=== PATIENT | male | born 1975 | race Caucasian/White ===

== ENCOUNTER 2016-04-14 08:55 | Outpatient (RCR) | payer OTHER ==
[2015-11-01 00:52] VITALS: BP 140/91
== END 2016-05-16 09:03 | disposition home or self-care (01) ==
LOC: PT 08:55
DX: M54.2 Cervicalgia (principal)

== ENCOUNTER → 2016-04-14 | Outpatient (CLI) | payer OTHER ==
[~2016-04-14] MED LIST: BACTRIM DS TAB1 EACH PO; CELEXA 20MG20 MG/TA1 PO; LEADER OMEPRAZO20 MG PO
== END ==
LOC: RAD 07:50
DX: R19.00 Intra-abdominal and pelvic swelling, mass and lump, unspecified site (principal); K43.9 Ventral hernia without obstruction or gangrene

== ENCOUNTER 2016-07-22 17:39 | Emergency (ER) | payer OTHER ==
[2016-07-22 21:04] VITALS: BP 143/90
== END 2016-07-22 21:04 | disposition home or self-care (01) ==
LOC: ED 17:39
DX: A08.4 Viral intestinal infection, unspecified (principal)
CPT/HCPCS: J1885; J2405; J7030; Q9967

== ENCOUNTER 2018-09-14 00:36 | Emergency (ER) | payer OTHER ==
[2018-09-14] MEDS ORDERED: AUGMENTIN 875-1 EAC1 PO (01:30)
[2018-09-14] MEDS ORDERED: NORCO 325 MG-51 TA1 PO (01:40)
[2018-09-14 01:42] VITALS: BP 156/90
== END 2018-09-14 01:42 | disposition home or self-care (01) ==
LOC: ED 00:36
DX: S51.852A Open bite of left forearm, initial encounter (principal); K21.9 Gastro-esophageal reflux disease without esophagitis; F17.290 Nicotine dependence, other tobacco product, uncomplicated; Z23 Encounter for immunization; Z90.49 Acquired absence of other specified parts of digestive tract; W54.0XXA Bitten by dog, initial encounter; Y92.009 Unspecified place in unspecified non-institutional (private) residence as the place of occurrence of the external cause
CPT/HCPCS: 90715

== ENCOUNTER → 2019-10-28 | Outpatient (CLI) | payer OTHER ==
[~2019-10-28] MED LIST changes: +AUGMENTIN 875-1 EAC1 PO; +NORCO 325 MG-51 TA1 PO
== END ==
LOC: RAD 07:55
DX: Z00.00 Encounter for general adult medical examination without abnormal findings (principal); Z12.5 Encounter for screening for malignant neoplasm of prostate; K21.9 Gastro-esophageal reflux disease without esophagitis; M54.2 Cervicalgia; Z72.0 Tobacco use; R06.00 Dyspnea, unspecified; R06.2 Wheezing

== ENCOUNTER → 2019-12-26 | Outpatient (CLI) | payer OTHER | LOC: LAB 13:52 | DX: J02.9 Acute pharyngitis, unspecified (principal); R09.81 Nasal congestion; Z20.828 Contact with and (suspected) exposure to other viral communicable diseases ==

== ENCOUNTER → 2021-02-22 | Outpatient (CLI) | payer OTHER | LOC: LAB 10:53 | DX: U07.1 COVID-19 (principal); R03.0 Elevated blood-pressure reading, without diagnosis of hypertension ==

== ENCOUNTER → 2021-08-15 | Outpatient (CLI) | payer OTHER | LOC: LAB 11:50 | DX: M54.6 Pain in thoracic spine (principal) ==

== ENCOUNTER → 2021-09-19 | Outpatient (REF) ==
[2021-09-20 16:48] LABS: T3 TOTAL 95 ng/dL (35-193)
== END ==
LOC: LAB 16:02
PROVIDERS: Physician Assistant
DX: Z13.29 Encounter for screening for other suspected endocrine disorder (principal); K90.9 Intestinal malabsorption, unspecified

== ENCOUNTER → 2022-04-09 | Outpatient (CLI) | payer BC | LOC: RAD 08:53 | DX: M67.442 Ganglion, left hand (principal) ==

== ENCOUNTER → 2022-05-01 | Outpatient (CLI) | payer BC | LOC: RAD 17:16 | DX: R05.9 Cough, unspecified (principal) ==

== ENCOUNTER → 2023-04-27 | Day surgery (SDC) | payer BC | END | disposition home or self-care (01) | LOC: MSO 02-02 12:06 | DX: Z12.11 Encounter for screening for malignant neoplasm of colon (principal); F17.210 Nicotine dependence, cigarettes, uncomplicated | CPT/HCPCS: 00812; J2704; J7120 ==

== ENCOUNTER → 2023-12-23 | Outpatient (CLI) | payer BC ==
[2023-12-23 16:48] LABS: BASO # 0.03 K/mm3 (0.02-0.10); EOS # 0.35 K/mm3 (0.04-0.40); EOS % 5.1 % (0.0-4.0); HEMATOCRIT 38.6 % (42.0-52.0); HEMOGLOBIN 12.4 g/dL (13.5-18.0); LYMPH# 2.07 K/mm3 (1.50-4.00); MEAN CELL VOLUME 82 fl (78-100); MEAN CORPUSCULAR HEMOGLOBIN 26 pg (27-31); MEAN CORPUSCULAR HGB CONC 32 g/dL (33-37); MEAN PLATELET VOLUME 9.2 fl (7.4-10.4); NEU # 3.86 K/mm3 (1.40-6.50); PLATELET COUNT 221 K/mm3 (130-400); RED BLOOD COUNT 4.69 M/mm3 (4.20-5.60); RED CELL DISTRIBUTION WIDTH 13.9 % (11.5-14.5); WHITE BLOOD COUNT 6.8 K/mm3 (4.8-10.8)
[2023-12-23 16:53] LABS: CALCIUM 9.2 mg/dL (8.3-10.5)
[2023-12-23 16:57] LABS: TOTAL BILIRUBIN 0.2 mg/dL (0.2-1.2)
== END ==
LOC: LAB 16:19
PROVIDERS: Physician Assistant
DX: Z12.5 Encounter for screening for malignant neoplasm of prostate (principal); Z13.1 Encounter for screening for diabetes mellitus; Z13.29 Encounter for screening for other suspected endocrine disorder; E78.5 Hyperlipidemia, unspecified; K90.9 Intestinal malabsorption, unspecified; M51.34 Other intervertebral disc degeneration, thoracic region

== ENCOUNTER → 2024-01-11 | Outpatient (CLI) | payer BC ==
[2024-01-11 12:05] LABS: BASO # 0.03 K/mm3 (0.02-0.10); EOS # 0.24 K/mm3 (0.04-0.40); EOS % 3.7 % (0.0-4.0); HEMATOCRIT 44.1 % (42.0-52.0); HEMOGLOBIN 14.1 g/dL (13.5-18.0); LYMPH# 1.72 K/mm3 (1.50-4.00); MEAN CELL VOLUME 83 fl (78-100); MEAN CORPUSCULAR HEMOGLOBIN 27 pg (27-31); MEAN CORPUSCULAR HGB CONC 32 g/dL (33-37); MEAN PLATELET VOLUME 8.9 fl (7.4-10.4); MONO # 0.47 K/mm3 (0.20-0.80); NEU # 4.08 K/mm3 (1.40-6.50); PLATELET COUNT 226 K/mm3 (130-400); RED BLOOD COUNT 5.31 M/mm3 (4.20-5.60); RED CELL DISTRIBUTION WIDTH 14.3 % (11.5-14.5); WHITE BLOOD COUNT 6.6 K/mm3 (4.8-10.8)
[2024-01-11 12:12] LABS: ALBUMIN 4.3 g/dL (3.5-5.0)
[2024-01-11 12:13] LABS: CALCIUM 9.8 mg/dL (8.3-10.5)
[2024-01-11 12:14] LABS: TOTAL PROTEIN 7.4 g/dL (6.4-8.3)
[2024-01-11 12:16] LABS: TOTAL BILIRUBIN 0.5 mg/dL (0.2-1.2)
== END ==
LOC: LAB 11:45
PROVIDERS: Physician Assistant
DX: Z12.5 Encounter for screening for malignant neoplasm of prostate (principal); Z13.1 Encounter for screening for diabetes mellitus; Z13.29 Encounter for screening for other suspected endocrine disorder; E78.5 Hyperlipidemia, unspecified; K90.9 Intestinal malabsorption, unspecified